=== PATIENT | male | born 1955 | race Caucasian/White ===

== ENCOUNTER 2021-04-19 09:13 | Outpatient (CLI) | payer MEDICARE ==
[2021-04-19] MEDS ORDERED: Iopamidol 370 76% 100 ML VIAL ONE (10:53)
== END 2021-04-19 09:14 | disposition home or self-care (01) ==
LOC: CT 09:13
PROVIDERS: ATTEND Thoracic Surgery (Cardiothoracic Vascular Surgery)
DX: I70.203 Unspecified atherosclerosis of native arteries of extremities, bilateral legs (principal); I74.5 Embolism and thrombosis of iliac artery
CPT/HCPCS: 75635; 82565; Q9967

== ENCOUNTER 2021-04-28 16:21 | Outpatient (CLI) | payer MEDICARE | END 2021-04-28 16:22 | disposition home or self-care (01) | LOC: BICRAD 16:21 | PROVIDERS: ATTEND Internal Medicine Cardiovascular Disease | DX: Z92.29 Personal history of other drug therapy (principal) | CPT/HCPCS: 71046 ==

== ENCOUNTER 2021-08-09 12:02 | Outpatient (CLI) | payer MEDICARE ==
[2021-08-09 13:14] LABS: Hemoglobin 17.4 g/dL (13.5-17.5); Mean Corpuscular HGB CONC 33.7 g/dL (32.0-36.0); Mean Corpuscular Hemoglobin 32.7 pg (27.0-33.0); Mean Platelet Volume 10.4 fl (7.4-10.4); Platelet Count 182 10x3/uL (150-450); RBC Distribution Width 12.1 % (11.5-14.5); Red Blood Cell (RBC) Count 5.32 10x6/uL (4.32-5.72); White Blood Cell (WBC) Count 6.4 10x3/uL (3.5-10.5)
[2021-08-09 13:24] LABS: PTT 30.1 sec (22.0-33.0); Prothrombin Time 10.9 sec (9.5-12.1)
[2021-08-09 13:40] LABS: Anion Gap 13 mmol/L (10-20); BUN (Urea Nitrogen) 21 mg/dL (8.4-25.7); Calc. Creatinine Clearance 0 mL/min (70-130); Calcium 9.3 mg/dL (7.8-10.44); Carbon Dioxide 26 mmol/L (23-31); Chloride 106 mmol/L (98-107); Glucose 134 mg/dL (80-115); Potassium 4.3 mmol/L (3.5-5.1); Sodium 141 mmol/L (136-145)
[2021-08-10 14:35] LABS: SARS-CoV-2 PCR by NAA Not Detected (NotDetected)
== END 2021-08-09 12:03 | disposition home or self-care (01) ==
LOC: LABBT 12:02
PROVIDERS: ATTEND Internal Medicine Cardiovascular Disease
DX: Z01.812 Encounter for preprocedural laboratory examination (principal); Z20.822 Contact with and (suspected) exposure to COVID-19
CPT/HCPCS: 80048; 85027; 85610; 85730; U0003; U0005

== ENCOUNTER 2021-08-14 08:32 | Day surgery (SDC) | payer MEDICARE ==
[2021-08-08 14:55] VITALS: BMI 34.0
[2021-08-14] MEDS ORDERED: Heparin 10,000 UNITS/ 10 ML VIAL ONE ×2 (09:25→13:04)
[2021-08-14] MEDS ORDERED: Isoproterenol 0.2 MG/1 ML AMP ONE (09:25)
[2021-08-14] MEDS ORDERED: Heparin 25,000 units/D5W 500 ML ONE (09:25)
[2021-08-14] MEDS ORDERED: Protamine Sulfate 50 MG/5 ML VIAL ONE (09:25)
[2021-08-14] MEDS ORDERED: Midazolam HCl 2 mg/2 ml Vial ONE (10:45)
[2021-08-14] MEDS ORDERED: Fentanyl 100 MCG/2 ML VIAL ONE (10:45)
[2021-08-14] MEDS ORDERED: PROPOFOL 200 MG/20 ML VIAL ONE (11:14)
[2021-08-14] MEDS ORDERED: Lidocaine 1% PF 5 ML VIAL ONE (11:14)
[2021-08-14] MEDS ORDERED: Glycopyrrolate 0.2 MG/ML 5 ML SYRINGE ONE (11:14)
[2021-08-14] MEDS ORDERED: Phenylephrine 10 MG/ML VIAL ONE (11:14)
[2021-08-14] MEDS ORDERED: Ondansetron PF 4 MG/2 ML Vial ONE (11:14)
[2021-08-14] MEDS ORDERED: Rocuronium Bromide 10 MG/ML (10ML VIAL) ONE (11:14)
[2021-08-14] MEDS ORDERED: Furosemide 20 MG/2 ML VIAL ONE (14:13)
== END 2021-08-14 18:10 | disposition home or self-care (01) ==
LOC: CCL 08:32
PROVIDERS: ATTEND Internal Medicine Cardiovascular Disease
PROC: 02583ZZ Destruction of Conduction Mechanism, Percutaneous Approach (ICD-10-PCS; principal; 2021-08-14)
PROC: 02K83ZZ Map Conduction Mechanism, Percutaneous Approach (ICD-10-PCS; 2021-08-14)
PROC: 4A023FZ Measurement of Cardiac Rhythm, Percutaneous Approach (ICD-10-PCS; 2021-08-14)
PROC: 4A0234Z Measurement of Cardiac Electrical Activity, Percutaneous Approach (ICD-10-PCS; 2021-08-14)
DX: I48.19 Other persistent atrial fibrillation (principal); I48.92 Unspecified atrial flutter; I25.5 Ischemic cardiomyopathy; I11.0 Hypertensive heart disease with heart failure; I50.9 Heart failure, unspecified; E78.5 Hyperlipidemia, unspecified; F17.210 Nicotine dependence, cigarettes, uncomplicated; I73.9 Peripheral vascular disease, unspecified; I69.398 Other sequelae of cerebral infarction; R20.8 Other disturbances of skin sensation; R42 Dizziness and giddiness; I25.10 Atherosclerotic heart disease of native coronary artery without angina pectoris; I25.2 Old myocardial infarction; Z79.01 Long term (current) use of anticoagulants; Z79.82 Long term (current) use of aspirin; Z79.899 Other long term (current) drug therapy; Z95.5 Presence of coronary angioplasty implant and graft; Z95.810 Presence of automatic (implantable) cardiac defibrillator
CPT/HCPCS: 85347; 93005; 93312; 93656; C1730; C1732; C1759; J1644; J1940; J2250; J2720; J3010

== ENCOUNTER 2021-08-18 13:40 | Observation (INO) | payer MEDICARE ==
[2021-08-18] MEDS ORDERED: Ondansetron PF 4 MG/2 ML Vial ONE (14:18)
[2021-08-18] MEDS ORDERED: Morphine 4 MG/ML VIAL ONE (14:18)
[2021-08-18 14:30] LABS: #Eosinphils 0.3 thou/uL (0.0-0.7); #Lymphocytes 1.6 thou/uL (1.20-3.40); #Monocytes 1.2 thou/uL (0.11-0.59); #Neutrophils 11.7 thou/uL (1.40-6.50); %Basophils 0.3 % (0.0-1.0); %Lymphocytes 10.8 % (21.0-51.0); %Neutrophils 78.8 % (42.0-75.0); Hemoglobin 16.5 g/dL (14.0-18.0); Mean Corpuscular HGB CONC 34.2 g/dL (32.0-36.0); Mean Corpuscular Hemoglobin 34.1 pg (27.0-31.0); Mean Corpuscular Volume 99.7 fL (78.0-98.0); Mean Platelet Volume 7.7 fL (7.4-10.4); Platelet Count 205 thou/uL (130-400); RBC Distribution Width 11.6 % (11.5-14.5); Red Blood Cell (RBC) Count 4.82 mill/uL (4.70-6.10); White Blood Cell (WBC) Count 14.8 thou/uL (4.8-10.8)
[2021-08-18] MEDS ORDERED: Iopamidol-370 76% 500 ML 1 ML ONE (14:46)
[2021-08-18 14:50] LABS: ALT (SGPT) 23 U/L (8-55); AST (SGOT) 21 U/L (5-34); Albumin 3.8 g/dL (3.4-4.8); Alkaline Phosphatase 92 U/L (40-110); Anion Gap 15 mmol/L (10-20); BUN (Urea Nitrogen) 27 mg/dL (8.4-25.7); Bilirubin, Total 0.5 mg/dL (0.2-1.2); Calc. Creatinine Clearance 0 mL/min (70-130); Calcium 9.5 mg/dL (7.8-10.44); Carbon Dioxide 26 mmol/L (23-31); Chloride 102 mmol/L (98-107); Globulin 3.7 g/dL (2.4-3.5); Glucose 175 mg/dL (80-115); Lipase 17 U/L (8-78); Potassium 4.9 mmol/L (3.5-5.1); Protein, Total 7.5 g/dL (5.8-8.1); Sodium 138 mmol/L (136-145)
[2021-08-18 15:15] LABS: CKMB 2.9 ng/mL (0-6.6)
[2021-08-18] MEDS ORDERED: Aspirin Chewable 81 MG TAB ONE (15:15)
[2021-08-18 17:51] LABS: SARS-CoV-2 NAA Rapid Test Not Detected (NotDetected)
[2021-08-18 17:55] LABS: Bilirubin Negative (Negative); Blood, Urine Negative (Negative); Clarity Clear (Clear); Glucose, Urine (Dipstick) Normal (Negative); Ketone, Urine Negative (Negative); Leukocyte Negative Leu/uL (Negative); Nitrite Negative (Negative); Protein, Urine (Dipstick) 20 mg/dL (Neg-Trace); Urobilinogen 3 mg/dL (Less than 2)
[2021-08-18 17:57] LABS: Specific Gravity, Urine 1.049 (1.002-1.036)
[2021-08-18] MEDS ORDERED: Acetaminophen 325 MG TAB PO PRN (18:30)
[2021-08-18] MEDS ORDERED: Ondansetron ODT 4 MG TAB SL PRN (18:30)
[2021-08-18] MEDS ORDERED: Ondansetron PF 4 MG/2 ML Vial IVP PRN (18:30)
[2021-08-18 19:17] LABS: Troponin I 0.312 ng/mL (< 0.028)
[2021-08-18 22:18] LABS: Troponin I 0.283 ng/mL (< 0.028)
[2021-08-18] MEDS ORDERED: HYDROcodone/Acetaminophen 7.5/325 mg Tablet PO PRN (23:01)
[2021-08-18] MEDS ORDERED: hydrALAZINE 20 MG/ML VIAL SLOW IVP PRN (23:03)
[2021-08-18] MEDS ORDERED: cefTRIAXone\\ROCEPHIN 1 GM in Sodium Chloride 0.9% 100 ML IVPB SCH (23:59)
[2021-08-19 05:29] VITALS: BMI 34.2
[2021-08-19 06:27] LABS: #Eosinphils 0.4 thou/uL (0.0-0.7); #Lymphocytes 2.3 thou/uL (1.20-3.40); #Monocytes 1.6 thou/uL (0.11-0.59); %Basophils 0.3 % (0.0-1.0); %Eosinophils 2.7 % (0.0-10.0); %Lymphocytes 17.3 % (21.0-51.0); %Monocytes 11.8 % (0.0-10.0); %Neutrophils 67.9 % (42.0-75.0); Hemoglobin 12.5 g/dL (14.0-18.0); Mean Corpuscular HGB CONC 34.5 g/dL (32.0-36.0); Mean Corpuscular Hemoglobin 34.4 pg (27.0-31.0); Mean Corpuscular Volume 99.7 fL (78.0-98.0); Mean Platelet Volume 7.3 fL (7.4-10.4); Platelet Count 182 thou/uL (130-400); RBC Distribution Width 11.5 % (11.5-14.5); Red Blood Cell (RBC) Count 3.65 mill/uL (4.70-6.10); White Blood Cell (WBC) Count 13.2 thou/uL (4.8-10.8)
[2021-08-19 06:40] LABS: Anion Gap 13 mmol/L (10-20); BUN (Urea Nitrogen) 33 mg/dL (8.4-25.7); Calc. Creatinine Clearance 73 mL/min (70-130); Calcium 8.3 mg/dL (7.8-10.44); Carbon Dioxide 26 mmol/L (23-31); Chloride 103 mmol/L (98-107); Glucose 111 mg/dL (80-115); Potassium 3.9 mmol/L (3.5-5.1); Sodium 138 mmol/L (136-145)
[2021-08-19] MEDS ORDERED: predniSONE 20 MG TAB PO SCH (09:00)
[2021-08-19] MEDS ORDERED: Rosuvastatin 10 MG TAB PO SCH (09:00)
[2021-08-19] MEDS ORDERED: Famotidine 20 MG TAB PO SCH (09:00)
[2021-08-19] MEDS ORDERED: Carvedilol 6.25 MG TAB PO SCH (09:00)
[2021-08-19] MEDS: GUAIFENESIN SF SOLN 200 MG/10 ML UDCUP PO PRN ×2 (10:25→14:36)
[2021-08-19 12:06] VITALS: BP 116/57; TEMP 96
[2021-08-19 12:42] LABS: Hemoglobin 12.4 g/dL (14.0-18.0)
[2021-08-19 15:38] LABS: Creatinine, Urine 149.02 mg/dL (63-166)
== END 2021-08-19 17:45 | disposition home or self-care (01) ==
LOC: ERS 13:40 → ERHOLD 18:07 → NEURO 08-19 04:48
PROVIDERS: ADMIT Family Medicine; ATTEND Family Medicine
DX: R05.9 Cough, unspecified (principal); M79.81 Nontraumatic hematoma of soft tissue; T45.515A Adverse effect of anticoagulants, initial encounter; T82.392A Other mechanical complication of femoral arterial graft (bypass), initial encounter; N17.9 Acute kidney failure, unspecified; D72.829 Elevated white blood cell count, unspecified; D62 Acute posthemorrhagic anemia; R77.8 Other specified abnormalities of plasma proteins; I48.91 Unspecified atrial fibrillation; I10 Essential (primary) hypertension; I25.10 Atherosclerotic heart disease of native coronary artery without angina pectoris; I69.398 Other sequelae of cerebral infarction; R20.0 Anesthesia of skin; F17.210 Nicotine dependence, cigarettes, uncomplicated; I73.9 Peripheral vascular disease, unspecified; J44.9 Chronic obstructive pulmonary disease, unspecified; Z79.01 Long term (current) use of anticoagulants; Z79.899 Other long term (current) drug therapy; Z20.822 Contact with and (suspected) exposure to COVID-19; Y71.1 Therapeutic (nonsurgical) and rehabilitative cardiovascular devices associated with adverse incidents
CPT/HCPCS: 0240U; 71275; 74174; 80048; 80053; 81003; 82553; 82570; 83605; 83690; 84156; 84300; 84484 ×2; 84540; 85014; 85018; 85025 ×2; 87040; 93005; 94640 ×2; 96375; G0378 ×3; 36415; J0696; J2270; J2405; J3490; J7512; J7620; Q9967

== ENCOUNTER 2021-12-19 08:24 | Outpatient (CLI) | payer MEDICARE | END 2021-12-19 08:25 | disposition home or self-care (01) | LOC: RAD 08:24 | PROVIDERS: ATTEND Internal Medicine Critical Care Medicine | DX: R06.00 Dyspnea, unspecified (principal) | CPT/HCPCS: 71046 ==

== ENCOUNTER 2022-02-22 08:55 | Outpatient (CLI) | payer MEDICARE | END 2022-02-22 08:56 | disposition home or self-care (01) | LOC: LABBT 08:55 | PROVIDERS: ATTEND Internal Medicine Gastroenterology | DX: Z20.822 Contact with and (suspected) exposure to COVID-19 (principal) | CPT/HCPCS: 87811 ==

== ENCOUNTER 2022-02-26 06:59 | Day surgery (SDC) | payer MEDICARE ==
[2022-02-22 12:51] VITALS: BMI 34.0
[2022-02-26] MEDS ORDERED: Lidocaine 1% PF 5 ML VIAL ONE (09:09)
[2022-02-26] MEDS ORDERED: PROPOFOL 200 MG/20 ML VIAL ONE (09:09)
== END 2022-02-26 10:31 | disposition home or self-care (01) ==
LOC: SDC 06:59
PROVIDERS: ATTEND Internal Medicine Gastroenterology
PROC: 0DBM8ZX Excision of Descending Colon, Via Natural or Artificial Opening Endoscopic, Diagnostic (ICD-10-PCS; principal; 2022-02-26)
PROC: 0DBL8ZX Excision of Transverse Colon, Via Natural or Artificial Opening Endoscopic, Diagnostic (ICD-10-PCS; 2022-02-26)
PROC: 0DBN8ZX Excision of Sigmoid Colon, Via Natural or Artificial Opening Endoscopic, Diagnostic (ICD-10-PCS; 2022-02-26)
DX: Z12.11 Encounter for screening for malignant neoplasm of colon (principal); D12.3 Benign neoplasm of transverse colon; D12.4 Benign neoplasm of descending colon; K57.30 Diverticulosis of large intestine without perforation or abscess without bleeding; I50.9 Heart failure, unspecified; E78.5 Hyperlipidemia, unspecified; Z79.01 Long term (current) use of anticoagulants; Z79.82 Long term (current) use of aspirin; Z79.899 Other long term (current) drug therapy; Z95.5 Presence of coronary angioplasty implant and graft; Z95.810 Presence of automatic (implantable) cardiac defibrillator
CPT/HCPCS: 88305; J2704

== ENCOUNTER 2022-06-21 14:01 | Inpatient (IN) | payer MEDICARE ==
[2022-06-21] MEDS ORDERED: Furosemide 40 MG/4 ML VIAL ONE (15:25)
[2022-06-21 15:41] LABS: #Eosinphils 0.2 thou/uL (0.0-0.7); #Lymphocytes 1.4 thou/uL (1.20-3.40); #Neutrophils 4.7 thou/uL (1.40-6.50); %Basophils 0.3 % (0.0-1.0); %Eosinophils 2.3 % (0.0-10.0); %Lymphocytes 19.2 % (21.0-51.0); %Monocytes 13.3 % (0.0-10.0); %Neutrophils 64.9 % (42.0-75.0); Mean Corpuscular HGB CONC 31.7 g/dL (32.0-36.0); Mean Corpuscular Hemoglobin 33.4 pg (27.0-31.0); RBC Distribution Width 12.7 % (11.5-14.5); White Blood Cell (WBC) Count 7.3 10x3/uL (4.8-10.8)
[2022-06-21 15:59] LABS: MDiff Complete? YES; Macrocytosis SLIGHT = 6-15 cells (100X) (0-5/hpf); Platelet Count 111 10x3/uL (130-400); Platelet Morphology Comment Appears Decreased; Polychromasia SLIGHT = 2-3 cells (100X) (0-2/hpf)
[2022-06-21 16:16] LABS: ALT (SGPT) 20 U/L (8-55); AST (SGOT) 17 U/L (5-34); Albumin 3.4 g/dL (3.4-4.8); Alkaline Phosphatase 100 U/L (40-110); Anion Gap 12 mmol/L (10-20); BUN (Urea Nitrogen) 28 mg/dL (8.4-25.7); Bilirubin, Total 0.8 mg/dL (0.2-1.2); Calc. Creatinine Clearance 0 mL/min (70-130); Calcium 8.8 mg/dL (7.8-10.44); Carbon Dioxide 30 mmol/L (23-31); Chloride 105 mmol/L (98-107); Estimated GFR 49; Globulin 2.7 g/dL (2.4-3.5); Glucose 83 mg/dL (80-115); Lipase 17 U/L (8-78); Magnesium 2.2 mg/dL (1.6-2.6); Potassium 4.4 mmol/L (3.5-5.1); Protein, Total 6.1 g/dL (5.8-8.1); Sodium 143 mmol/L (136-145)
[2022-06-21 16:38] LABS: CKMB 3.7 ng/mL (0-6.6)
[2022-06-21] MEDS ORDERED: Senokot S 8.6-50 MG TAB PO PRN (18:32)
[2022-06-21] MEDS ORDERED: Bisacodyl 5 MG TAB PO PRN (18:32)
[2022-06-21] MEDS ORDERED: Acetaminophen 325 MG TAB PO PRN (18:32)
[2022-06-21 22:42] VITALS: BMI 36.8
[2022-06-21] MEDS: Apixaban 5 MG TAB PO SCH (22:55)
[2022-06-21] MEDS: Famotidine 20 MG TAB PO SCH (22:55)
[2022-06-21] MEDS: cefTRIAXone\\ROCEPHIN 2 GM in Sodium Chloride 0.9% 100 ML IVPB SCH (22:55)
[2022-06-22 05:04] LABS: #Basophils 0.1 thou/uL (0.0-0.2); #Eosinphils 0.3 thou/uL (0.0-0.7); #Lymphocytes 1.5 thou/uL (1.20-3.40); #Monocytes 1.2 thou/uL (0.11-0.59); #Neutrophils 6.1 thou/uL (1.40-6.50); %Basophils 0.6 % (0.0-1.0); %Eosinophils 2.9 % (0.0-10.0); %Lymphocytes 16.3 % (21.0-51.0); %Monocytes 13.5 % (0.0-10.0); %Neutrophils 66.6 % (42.0-75.0); Hemoglobin 17.8 g/dL (14.0-18.0); Mean Corpuscular Hemoglobin 33.6 pg (27.0-31.0); Mean Platelet Volume 8.5 fL (7.4-10.4); Platelet Count 121 10x3/uL (130-400); RBC Distribution Width 12.6 % (11.5-14.5); Red Blood Cell (RBC) Count 5.29 mill/uL (4.70-6.10); White Blood Cell (WBC) Count 9.1 10x3/uL (4.8-10.8)
[2022-06-22 05:18] LABS: Anion Gap 12 mmol/L (10-20); BUN (Urea Nitrogen) 25 mg/dL (8.4-25.7); Calc. Creatinine Clearance 68 mL/min (70-130); Calcium 9.1 mg/dL (7.8-10.44); Carbon Dioxide 35 mmol/L (23-31); Chloride 102 mmol/L (98-107); Estimated GFR 43; Glucose 117 mg/dL (80-115); Potassium 4.5 mmol/L (3.5-5.1); Sodium 144 mmol/L (136-145)
[2022-06-22] MEDS: Furosemide 40 MG/4 ML VIAL SLOW IVP SCH ×2 (06:05→14:35)
[2022-06-22] MEDS: Apixaban 5 MG TAB PO SCH ×2 (08:51→21:54)
[2022-06-22] MEDS: Amiodarone 200 MG TAB PO SCH (08:51)
[2022-06-22] MEDS: Aspirin Chewable 81 MG TAB PO SCH (08:52)
[2022-06-22] MEDS: Rosuvastatin 10 MG TAB PO SCH (08:52)
[2022-06-22] MEDS: Famotidine 20 MG TAB PO SCH ×2 (08:52→21:54)
[2022-06-22] MEDS: Ketoconazole 2% Cream 15 gm Tube TOP SCH (09:59)
[2022-06-22] MEDS: Mometasone 100 MCG/Formoterol 5 MCG 120 PUFF INHALER INH SCH (19:56)
[2022-06-22] MEDS: Carvedilol 6.25 MG TAB PO SCH (21:54)
[2022-06-22] MEDS: cefTRIAXone\\ROCEPHIN 2 GM in Sodium Chloride 0.9% 100 ML IVPB SCH (21:54)
[2022-06-23] MEDS: Furosemide 40 MG/4 ML VIAL SLOW IVP SCH ×2 (05:10→13:50)
[2022-06-23 05:55] LABS: Anion Gap 13 mmol/L (10-20); BUN (Urea Nitrogen) 23 mg/dL (8.4-25.7); Calc. Creatinine Clearance 77 mL/min (70-130); Calcium 8.6 mg/dL (7.8-10.44); Carbon Dioxide 32 mmol/L (23-31); Chloride 100 mmol/L (98-107); Estimated GFR 50; Glucose 200 mg/dL (80-115); Potassium 3.2 mmol/L (3.5-5.1); Sodium 142 mmol/L (136-145)
[2022-06-23] MEDS: Mometasone 100 MCG/Formoterol 5 MCG 120 PUFF INHALER INH SCH ×2 (07:32→19:50)
[2022-06-23] MEDS ORDERED: Dextrose 5% in Water 1,000 ML IV PRN (08:15)
[2022-06-23] MEDS ORDERED: HumaLOG 300 UNITS/3 ML VIAL SC PRN (08:15)
[2022-06-23] MEDS ORDERED: Dextrose 50% Abboject 50 ML SYRINGE SLOW IVP PRN (08:15)
[2022-06-23] MEDS: Apixaban 5 MG TAB PO SCH ×2 (08:56→19:54)
[2022-06-23] MEDS: Carvedilol 6.25 MG TAB PO SCH ×2 (08:56→19:53)
[2022-06-23] MEDS: Ketoconazole 2% Cream 15 gm Tube TOP SCH (08:56)
[2022-06-23] MEDS: Amiodarone 200 MG TAB PO SCH (08:56)
[2022-06-23] MEDS: Aspirin Chewable 81 MG TAB PO SCH (08:56)
[2022-06-23] MEDS: Famotidine 20 MG TAB PO SCH ×2 (08:56→19:53)
[2022-06-23] MEDS ORDERED: Potassium Chloride 20 MEQ TAB PO SCH ×2 (09:00→11:00)
[2022-06-23] MEDS: Rosuvastatin 10 MG TAB PO SCH (09:03)
[2022-06-23] MEDS: cefTRIAXone\\ROCEPHIN 2 GM in Sodium Chloride 0.9% 100 ML IVPB SCH (19:54)
[2022-06-24] MEDS: Furosemide 40 MG/4 ML VIAL SLOW IVP SCH ×2 (05:10→14:20)
[2022-06-24 06:03] LABS: Hemoglobin A1c 6.7 % (4.0-6.0)
[2022-06-24 06:26] LABS: Anion Gap 14 mmol/L (10-20); BUN (Urea Nitrogen) 19 mg/dL (8.4-25.7); Calc. Creatinine Clearance 76 mL/min (70-130); Carbon Dioxide 29 mmol/L (23-31); Chloride 103 mmol/L (98-107); Estimated GFR 50; Glucose 115 mg/dL (80-115); Potassium 3.9 mmol/L (3.5-5.1); Sodium 142 mmol/L (136-145)
[2022-06-24] MEDS: Mometasone 100 MCG/Formoterol 5 MCG 120 PUFF INHALER INH SCH ×2 (07:58→19:10)
[2022-06-24] MEDS: Famotidine 20 MG TAB PO SCH ×2 (08:36→20:50)
[2022-06-24] MEDS: Aspirin Chewable 81 MG TAB PO SCH (08:36)
[2022-06-24] MEDS: Rosuvastatin 10 MG TAB PO SCH (08:36)
[2022-06-24] MEDS: Amiodarone 200 MG TAB PO SCH (08:36)
[2022-06-24] MEDS: Potassium Chloride 20 MEQ TAB PO SCH (08:36)
[2022-06-24] MEDS: Apixaban 5 MG TAB PO SCH ×2 (08:36→20:50)
[2022-06-24] MEDS: Carvedilol 6.25 MG TAB PO SCH ×2 (08:36→20:50)
[2022-06-24] MEDS: Ketoconazole 2% Cream 15 gm Tube TOP SCH (08:37)
[2022-06-24] MEDS ORDERED: Meclizine HCl 12.5 MG TAB PO PRN (14:11)
[2022-06-25 05:25] LABS: Hemoglobin 16.2 g/dL (14.0-18.0); Mean Corpuscular HGB CONC 31.4 g/dL (32.0-36.0); Mean Corpuscular Hemoglobin 32.3 pg (27.0-31.0); Mean Platelet Volume 8.5 fL (7.4-10.4); Platelet Count 125 10x3/uL (130-400); RBC Distribution Width 12.3 % (11.5-14.5)
[2022-06-25 05:43] LABS: Anion Gap 12 mmol/L (10-20); BUN (Urea Nitrogen) 24 mg/dL (8.4-25.7); Calc. Creatinine Clearance 77 mL/min (70-130); Calcium 8.7 mg/dL (7.8-10.44); Carbon Dioxide 31 mmol/L (23-31); Chloride 102 mmol/L (98-107); Estimated GFR 52; Glucose 124 mg/dL (80-115); Potassium 3.8 mmol/L (3.5-5.1); Sodium 141 mmol/L (136-145)
[2022-06-25] MEDS: Mometasone 100 MCG/Formoterol 5 MCG 120 PUFF INHALER INH SCH ×2 (06:57→18:38)
[2022-06-25] MEDS: Rosuvastatin 10 MG TAB PO SCH (08:14)
[2022-06-25] MEDS: Famotidine 20 MG TAB PO SCH ×2 (08:15→20:09)
[2022-06-25] MEDS: Amiodarone 200 MG TAB PO SCH (08:15)
[2022-06-25] MEDS: Aspirin Chewable 81 MG TAB PO SCH (08:15)
[2022-06-25] MEDS: Apixaban 5 MG TAB PO SCH ×2 (08:15→20:09)
[2022-06-25] MEDS: Carvedilol 6.25 MG TAB PO SCH ×2 (08:15→20:09)
[2022-06-25] MEDS: Potassium Chloride 20 MEQ TAB PO SCH (08:15)
[2022-06-25] MEDS: Ketoconazole 2% Cream 15 gm Tube TOP SCH (08:21)
[2022-06-25] MEDS: Furosemide 40 MG/4 ML VIAL SLOW IVP SCH ×2 (09:58→16:29)
[2022-06-25] MEDS ORDERED: PROPOFOL 200 MG/20 ML VIAL ONE (14:57)
[2022-06-26] MEDS: Furosemide 40 MG/4 ML VIAL SLOW IVP SCH (05:05)
[2022-06-26] MEDS: Mometasone 100 MCG/Formoterol 5 MCG 120 PUFF INHALER INH SCH (07:41)
[2022-06-26 08:09] VITALS: BP 141/71; TEMP 97.5
[2022-06-26] MEDS: Famotidine 20 MG TAB PO SCH (08:32)
[2022-06-26] MEDS: Amiodarone 200 MG TAB PO SCH (08:33)
[2022-06-26] MEDS: Apixaban 5 MG TAB PO SCH (08:33)
[2022-06-26] MEDS: Potassium Chloride 20 MEQ TAB PO SCH (08:33)
[2022-06-26] MEDS: Aspirin Chewable 81 MG TAB PO SCH (08:33)
[2022-06-26] MEDS: Rosuvastatin 10 MG TAB PO SCH (08:33)
[2022-06-26] MEDS: Carvedilol 6.25 MG TAB PO SCH (08:33)
[2022-06-26] MEDS: Ketoconazole 2% Cream 15 gm Tube TOP SCH (09:06)
== END 2022-06-26 10:32 | disposition home or self-care (01) | DRG 291 ==
LOC: ERS 14:01 → 2SW 18:30
PROVIDERS: ADMIT Internal Medicine; ATTEND Internal Medicine
PROC: 5A2204Z Restoration of Cardiac Rhythm, Single (ICD-10-PCS; principal; 2022-06-25)
DX: I11.0 Hypertensive heart disease with heart failure (principal); I50.23 Acute on chronic systolic (congestive) heart failure; I69.354 Hemiplegia and hemiparesis following cerebral infarction affecting left non-dominant side; N17.9 Acute kidney failure, unspecified; I87.2 Venous insufficiency (chronic) (peripheral); E87.6 Hypokalemia; J44.9 Chronic obstructive pulmonary disease, unspecified; I48.0 Paroxysmal atrial fibrillation; E11.51 Type 2 diabetes mellitus with diabetic peripheral angiopathy without gangrene; I25.10 Atherosclerotic heart disease of native coronary artery without angina pectoris; F17.210 Nicotine dependence, cigarettes, uncomplicated; B35.3 Tinea pedis; I25.5 Ischemic cardiomyopathy; Z95.828 Presence of other vascular implants and grafts; Z79.01 Long term (current) use of anticoagulants; Z79.899 Other long term (current) drug therapy; Z79.82 Long term (current) use of aspirin; Z95.810 Presence of automatic (implantable) cardiac defibrillator
CPT/HCPCS: 36415; 36416; 71045; 80048; 80053; 82553; 83036; 83690; 83735; 83880; 84484; 85025; 85027; 92960; 93005; 93306; 93970; 94640; 96374; 97139; J0696; J1815; J1940; J2704; J3490; J7620; U0003; U0005